=== PATIENT | female | born 1935 | race Caucasian/White ===

== ENCOUNTER 2017-04-02 14:46 | Emergency (ER) | payer BC, MEDICARE ==
[2017-04-02] MEDS ORDERED: ACETAMINOPHEN 325 MG TABLET PO ONE (15:23)
[2017-04-02] MEDS ORDERED: DIPH/PERTUSS(ACELL)/TETANUS VAC/PF 0.5 ML SYR (>=10YO) IM ONE (15:23)
--- NOTE | 2017-04-02 15:25 | ER Document Report ---
ED Medical Screen (RME) - General Chief Complaint: Fall Injury Stated Complaint: FALL FACIAL INJURY Time Seen by Provider: 04/02/17 15:23 Mode of Arrival: Wheelchair Information source: Patient TRAVEL OUTSIDE OF THE [place] IN LAST 30 DAYS: No - HPI Patient complains to provider of: Fall, facial injury, right hand injury Onset: Just prior to arrival Notes: 04/02/17 15:24 Patient is an 82-year-old female presenting to the emergency room status post fall, states she was bending over to assist her small dog to get a drink of water when she continued falling face forward hitting her nose on the pavement, and causing injury to her right hand as well, she denies any loss of consciousness, no nausea or vomiting, no vision changes, no lightheaded or dizziness, she denies neck pain, no numbness or tingling to extremities, she is complaining of a mild headache with pain and swelling to her nose with small lacerations, and a flap laceration to the palmar surface of her right hand at the base of her fifth finger, last tetanus shot is unknown - Related Data Allergies/Adverse Reactions: codeine Allergy (Verified 04/02/17 14:52) metoclopramide [From Reglan] Allergy (Verified 04/02/17 14:52) Past Medical History Renal/ Medical History: Denies: Hx Peritoneal Dialysis Physical Exam - Vital signs Vitals: Temp Pulse Resp BP Pulse Ox 97.6 F 80 16 132/63 H 97 04/02/17 14:52 04/02/17 14:52 04/02/17 14:52 04/02/17 14:52 04/02/17 14:52 Course - Vital Signs Vital signs: Temp Pulse Resp BP Pulse Ox 97.6 F 80 16 132/63 H 97 04/02/17 14:52 04/02/17 14:52 04/02/17 14:52 04/02/17 14:52 04/02/17 14:52
--- NOTE | 2017-04-02 16:06 | RADIOLOGY REPORT (SQ) ---
EXAM DESCRIPTION: HAND RIGHT 3 VIEWS COMPLETED DATE/TIME: 04/02/2017 3:52 pm REASON FOR STUDY: fall COMPARISON: None. EXAM PARAMETERS: NUMBER OF VIEWS: Three views. TECHNIQUE: AP, lateral and oblique radiographic images acquired of the right hand. LIMITATIONS: None. FINDINGS: MINERALIZATION: Normal. BONES: No acute fracture or dislocation. No worrisome bone lesions. JOINTS: No effusions. SOFT TISSUES: No soft tissue swelling. Punctate radiodensities seen overlying the soft tissues of th e index finger distally are nonspecific, and may be either within or superficial to the soft tissues. OTHER: The instrument room technician indicate laceration of the lateral hand. IMPRESSION: In the elevator technician -identified area of concern there is no evidence of retained radiopaqu e foreign body or acute osseous injury. Hyperdensities projecting over the 1st digit finger tip are of uncertain etiology or significance. TECHNICAL DOCUMENTATION: JOB ID: [id number] [employer]- All Rights Reserved
--- NOTE | 2017-04-02 16:08 | RADIOLOGY REPORT (SQ) ---
EXAM DESCRIPTION: FACIAL BONES COMPLETED DATE/TIME: 04/02/2017 3:52 pm REASON FOR STUDY: fall COMPARISON: None. NUMBER OF VIEWS: Three view. TECHNIQUE: Images of the facial bones acquired. LIMITATIONS: None. FINDINGS: ORBITS: No fracture. No foreign body. SINUSES: No mucosal thickening. No air fluid levels. FACIAL BONES: There is a moderately depressed fracture of the tip of the nasal bones. OTHER: Incidental note is made of 6 short linear hyperdensities appear to localize to the region of t he left temporal bone. These are of uncertain etiology or significance. IMPRESSION: Moderately depressed fracture of the tip of the nasal bones. Otherwise unremarkable nba earance of the facial bones. TECHNICAL DOCUMENTATION: JOB ID: [id number] [employer]- All Rights Reserved
[2017-04-02] MEDS ORDERED: LIDOCAINE 1% INJ-PF (10 MG/ML) 30 ML SDV INJ ONE (16:11)
[2017-04-02 18:01] VITALS: BP 126/55
--- NOTE | 2017-04-02 18:02 | ER Document Report ---
ED Fall - General Chief Complaint: Fall Injury Stated Complaint: FALL FACIAL INJURY Time Seen by Provider: 04/02/17 15:23 Mode of Arrival: Wheelchair Information source: Patient Notes: 82 yo female fell forward due to momentum when she bent down to touch the water in the dog dish when stopped on way to [place] for a week vacation. No LOC , no n/v, no head. Did have nosebleed and swollen upper lip. No neck pain. Tetanus not current. TRAVEL OUTSIDE OF THE [place] IN LAST 30 DAYS: No - Related data Allergies/Adverse Reactions: codeine Allergy (Verified 04/02/17 14:52) metoclopramide [From Reglan] Allergy (Verified 04/02/17 14:52) Past Medical History - General Information source: Patient - Social History Smoking Status: Never Smoker Frequency of alcohol use: None Drug Abuse: None Lives with: Spouse/Significant other Family History: Reviewed & Not Pertinent Patient has suicidal ideation: No Patient has homicidal ideation: No - Past Medical History Cardiac Medical History: Reports: Hx Hypercholesterolemia, Hx Hypertension Renal/ Medical History: Denies: Hx Peritoneal Dialysis Past Surgical History: Reports: Hx Orthopedic Surgery - back Review of Systems - Review of Systems Constitutional: No symptoms reported EENT: See HPI Cardiovascular: No symptoms reported Respiratory: No symptoms reported Gastrointestinal: No symptoms reported Genitourinary: No symptoms reported Female Genitourinary: No symptoms reported Musculoskeletal: See HPI Skin: No symptoms reported Hematologic/Lymphatic: No symptoms reported Neurological/Psychological: No symptoms reported Physical Exam - Vital signs Vitals: Temp Pulse Resp BP Pulse Ox 97.6 F 80 16 132/63 H 97 04/02/17 14:52 04/02/17 14:52 04/02/17 14:52 04/02/17 14:52 04/02/17 14:52 Interpretation: Normal - General General appearance: Appears well, Alert In distress: None - HEENT Head: Normocephalic. No: Ybarra's sign, [place]'s eyes Eyes: Normal Conjunctiva: Normal Pupils: PERRL Nasal: Ecchymosis, Swelling, Other - abrasion bridge of nose. No: Septal hematoma Mouth/Lips: Other - swollen upper lip, teeth are dentures only Neck: Supple - non tender c spine - Respiratory Respiratory status: No respiratory distress Chest status: Nontender Breath sounds: Normal Chest palpation: Normal - Cardiovascular Rhythm: Regular Heart sounds: Normal auscultation Murmur: No - Abdominal Inspection: Normal Distension: No distension Bowel sounds: Normal Tenderness: Nontender Organomegaly: No organomegaly - Back Back: Normal, Nontender - Extremities General upper extremity: Normal inspection, Nontender, Normal color, Normal ROM , Normal temperature General lower extremity: Normal inspection, Nontender, Normal color, Normal ROM , Normal temperature, Normal weight bearing. No: Tyler's sign Hand: Tender, Laceration - 1.5 cm v shaped lateral right hand over the 5th MC. No: Tendon deficit - Neurological Neuro grossly intact: Yes Cognition: Normal Orientation: AAOx4 [place] Coma Scale Eye Opening: Spontaneous [place] Coma Scale Verbal: Oriented [place] Coma Scale Motor: Obeys Commands [place] Coma Scale Total: 15 Speech: Normal Motor strength normal: LUE, RUE, LLE, RLE Sensory: Normal - Psychological Associated symptoms: Normal affect, Normal mood - Skin Skin Temperature: Warm Skin Moisture: Dry Skin Color: Normal Notes: see above Course - Re-evaluation Re-evalutation: 04/02/17 17:58 Hand x-rays negative for fracture there is a indistinct soft tissue finding on the index finger which she burned about a week ago. She does have a depressed distal nasal fracture no septal hematoma. - Vital Signs Vital signs: Temp Pulse Resp BP Pulse Ox 97.6 F 53 L 16 126/55 H 95 04/02/17 14:52 04/02/17 18:01 04/02/17 18:01 04/02/17 18:01 04/02/17 18:01 Procedures - Laceration/Wound Repair Right Hand Time completed: 17:59 Wound length (cm): 1.5 - flap Wound's Depth, Shape: Linear - v shaped flap, Other - to sub q tissue Laceration pre-procedure: Other - surgiscrub Anesthetic type: 1% Lidocaine Volume Anesthetic (mLs): 4 Irrigated w/ Saline (mLs): 60 Suture Size/Type: Prolene Number of Sutures: 3 Post-procedure NV exam normal: Yes Complications: No Discharge - Discharge Clinical Impression: hand cut repair Condition: Good Disposition: HOME, SELF-CARE Instructions: Fracture of the Nose ([facility]), Laceration Care ([facility]) Additional Instructions: Plan on seeing an ears nose and throat doctor when you get home to next week. Return to this emergency department any signs of infection or worsening of symptoms Either Tylenol or your hydrocodone for discomfort Keep the bandage on for 2 days and then remove wash with soap and water and use bacitracin. Use bacitracin on your nose abrasion Do not blow your nose or pick her nose this week Please complete the patient satisfaction survey if you get one, and return it.. If you do not receive a survey, then you can go to the [facility] website, [email or web address] and place your comments about your very good care. Thank you very much. It was a pleasure being your medical provider today.
== END 2017-04-02 18:05 | disposition home or self-care (01) ==
LOC: ER 14:46
PROC: 0HQFXZZ Repair Right Hand Skin, External Approach (ICD-10-PCS; principal; 2017-04-02)
DX: S61.411A Laceration without foreign body of right hand, initial encounter (principal); S09.93XA Unspecified injury of face, initial encounter; R04.0 Epistaxis; R22.0 Localized swelling, mass and lump, head; X58.XXXA Exposure to other specified factors, initial encounter
CPT/HCPCS: 99283; 90471; 70150; 73130; 90715; 12001; J3490